=== PATIENT | female | born 1960 | race African-American/Black ===

== ENCOUNTER 2017-01-07 08:14 | Outpatient (CLI) | payer MEDICARE, MEDICAID ==
--- NOTE | 2017-01-07 11:02 | PRG ---
DATE OF SERVICE: 01/07/2017 HISTORY: Ms. Zandra Colindres is a very pleasant 56-year-old who presents [facility] for evaluation of decubitus ulceration inferior to the left buttock. The patient also has an ulceratio n of her right below the knee amputation stump. The patient has been receiving dressing changes of Arglaes powder for both wounds. The patient has no complaints today. She denies any fever or chill s. PHYSICAL EXAMINATION: VITAL SIGNS: Temperature 98.6, pulse 76, respirations 18, blood pressure 148/82, Accu-Chek 420. BACK: An ulceration of the left upper thigh is present which measures approximately 8.0 x 5.4 cm. The dimensions of the wound at the time of the patient's visit on 12/02/2016 were approximately 8.5 x 5.5 cm. The wound is granulating. Nonviable tissue present within the wound margins was debrided with an excisional full-thickness debridement. No purulent drainage is associated with the wound. A sample of granulation tissue within the wound margins was excised with the use of scissors and se nt for aerobic and anaerobic cultures. No erythema of the skin surrounding the wound is present. N o maceration of the skin of the periwound is noted. EXTREMITIES: An ulceration of the right below the knee amputation stump is present which measures a pproximately 1.1 x 0.9 cm. The dimensions of the wound at the time of the patient's visit on 2016 were approximately 1.4 x 0.6 cm. Granulation tissue is present within the wound margins. No p urulent drainage is associated with the wound. No erythema of the skin surrounding the wound is pre sent. No maceration of the skin of the periwound is noted. No significant edema of the right below the knee amputation stump is present on exam today. No bone is palpable within the margins of the right below the knee amputation stump wound. ASSESSMENT AND PLAN: 1. Decubitus ulceration of left upper thigh. The patient also has an ulceration of the right below the knee amputation stump. Dressing changes of Arglaes powder for both wounds will be continued on a daily basis after cleansing and irrigation. I will see Ms. Colindres again in four weeks. Orders w ill again be transmitted to [facility] for offloading of both wounds with p osition changes to 2 hours. Orders will also be transmitted to [facility] for dressing changes as needed in addition to the daily dressing changes should the dressings become soiled from urine or bowel movement. 2. Diabetes mellitus. The patient's Accu-Chek in clinic today is 420. The patient has been remind ed that for optimal wound healing, her blood glucoses should remain below 150. 3. Hypertension. 4. Coronary artery disease. 5. Peripheral vascular disease.
== END 2017-01-07 08:15 | disposition home or self-care (01) ==
LOC: WCC 08:14
PROVIDERS: ATTEND Family Medicine
DX: L89.899 Pressure ulcer of other site, unspecified stage (principal); T87.89 Other complications of amputation stump; E11.9 Type 2 diabetes mellitus without complications; I10 Essential (primary) hypertension; I73.9 Peripheral vascular disease, unspecified; I25.10 Atherosclerotic heart disease of native coronary artery without angina pectoris
CPT/HCPCS: 11042; 36416; 87070; 87077; 87186; 87205

== ENCOUNTER 2017-01-28 08:23 | Outpatient (CLI) | payer MEDICARE, MEDICAID ==
[2017-01-28] MEDS ORDERED: Sodium Chloride 0.9% 15 ML NEB ONE (08:28)
[2017-01-28] MEDS ORDERED: Lidocaine 2% Jelly 5 ML TUBE ONE (08:28)
--- NOTE | 2017-01-28 11:01 | PRG ---
DATE OF SERVICE: 01/28/2017 HISTORY: Ms. Zandra Colindres is a very pleasant 56-year-old who presents to the [facility] for evaluation of a decubitus ulceration of the inferior left buttock. The patient also has an ulceratio n of her right below the knee amputation stump. The patient has been receiving dressing changes of A rglaes powder for both wounds. Ms. Colindres has no complaints today. She denies any fever or chills. PHYSICAL EXAMINATION: VITAL SIGNS: Temperature 97.7, pulse 73, respirations 18, blood pressure 125/87. Accu-Chek 200. BACK: An ulceration of the left inferior buttock is present which measures approximately 4.5 x 5.5 c m. The dimensions of the wound at the time of the patient's visit on 01/07/2017 were approximately 8 .0 x 5.4 cm. No granulation tissue is visible within the wound margins. Necrotic and nonviable tiss ue present within the wound margins was debrided with an excisional full-thickness debridement with t he use of scissors. No purulent drainage is associated with the wound. No erythema of the skin surr ounding the wound is present. No maceration of the skin of the periwound is noted. EXTREMITIES: The ulceration of the right below the knee amputation stump has healed completely. ASSESSMENT AND PLAN: 1. Decubitus ulceration of inferior left buttock, dressing changes of Santyl and gauze will be initi ated today. These dressing changes are to be performed on a daily basis after cleansing and irrigati on. Arrangements will also be made for the initiation of negative pressure therapy with dressing silverio nges of the wound VAC 3 times per week at [facility]. Dressing changes of S antyl will be discontinued once the wound VAC becomes available. Orders will again be transmitted to [facility] for offloading of the wound with position changes q.2 hours. Or ders will again be transmitted to [facility] for dressing changes as needed in addition to the daily dressing changes should the dressings become soiled from urine or bowel move ment. I will see Ms. Colindres again in four weeks. 2. Diabetes mellitus. The patient's Accu-Chek in clinic today is 200. The patient has been reminde d that for optimal wound healing, her blood glucoses should remain below 150. 3. Hypertension. 4. Coronary artery disease. 5. Peripheral vascular disease.
== END 2017-01-28 08:24 | disposition home or self-care (01) ==
LOC: WCC 08:23
PROVIDERS: ATTEND Family Medicine
DX: L89.329 Pressure ulcer of left buttock, unspecified stage (principal); E11.9 Type 2 diabetes mellitus without complications; E78.5 Hyperlipidemia, unspecified; I25.10 Atherosclerotic heart disease of native coronary artery without angina pectoris; I73.9 Peripheral vascular disease, unspecified; I10 Essential (primary) hypertension
CPT/HCPCS: 11042; A4218

== ENCOUNTER 2018-06-20 18:20 | Inpatient (IN) | payer MEDICARE, OTHER ==
[2018-06-20 21:03] LABS: #Eosinphils 0.2 thou/uL (0.0-0.7); #Lymphocytes 2.8 thou/uL (1.20-3.40); #Monocytes 0.7 thou/uL (0.11-0.59); #Neutrophils 2.9 thou/uL (1.40-6.50); %Basophils 0.6 % (0.0-1.0); %Eosinophils 3.4 % (0.0-10.0); %Lymphocytes 41.6 % (21.0-51.0); %Monocytes 10.4 % (0.0-10.0); Hemoglobin 12.1 g/dL (12.0-16.0); Mean Corpuscular HGB CONC 31.1 g/dL (32.0-36.0); Mean Corpuscular Hemoglobin 30.2 pg (27.0-31.0); Mean Corpuscular Volume 97.1 fL (78.0-98.0); Mean Platelet Volume 8.5 fL (7.4-10.4); Platelet Count 233 thou/uL (130-400); RBC Distribution Width 13.5 % (11.5-14.5); Red Blood Cell (RBC) Count 4.01 mill/uL (4.20-5.40); White Blood Cell (WBC) Count 6.7 thou/uL (4.8-10.8)
[2018-06-20] MEDS ORDERED: Acetaminophen 500 MG TAB ONE (21:18)
[2018-06-20 21:24] LABS: ALT (SGPT) 31 U/L (8-55); AST (SGOT) 30 U/L (5-34); Albumin 3.7 g/dL (3.5-5.0); Alkaline Phosphatase 92 U/L (40-150); Anion Gap 13 mmol/L (10-20); BUN (Urea Nitrogen) 34 mg/dL (9.8-20.1); Bilirubin, Total 0.2 mg/dL (0.2-1.2); Calc. Creatinine Clearance 0 mL/min (70-130); Calcium 9.4 mg/dL (7.8-10.44); Carbon Dioxide 18 mmol/L (22-29); Chloride 109 mmol/L (98-107); Estimated GFR-MDRD 56; Globulin 3.2 g/dL (2.4-3.5); Glucose 454 mg/dL (70-105); Potassium 4.4 mmol/L (3.5-5.1); Protein, Total 6.9 g/dL (6.0-8.3); Sodium 136 mmol/L (136-145)
[2018-06-20] MEDS ORDERED: Piperacillin/Tazobactam 4.5 GM VIAL ONE (21:58)
[2018-06-20] MEDS ORDERED: Sodium Chloride 0.9% 100 ML ONE (21:58)
[2018-06-20] MEDS ORDERED: Vancomycin HCl 1.5 GM in Sodium Chloride 0.9% 250 ML 300 ML IVPB SCH (22:00)
--- NOTE | 2018-06-20 22:20 | PDOC.FPRHP ---
- History of Present Illness Chief Complaint: sacral ulcer History of Present Illness: 58 yo F presents form [facility], sent in because wound care nurses were concerned about patient's sacral decubitus ulcer. Pt reports she has had ulcer for past year. Denies current pain, but states it sometimes hurts. Denies fevers /headache. Denies CP/SOB/Nausea/vomiting/diarrhea/constipation. ED Course: Blood cultures, wound cultures. 30 ml/kg bolus NS, vanc and zosyn, tylenol - Allergies/Adverse Reactions Allergies Allergy/AdvReac Type Severity Reaction Status Date / Time No Known Allergies Allergy Verified 01/18/14 13:15 - Home Medications Medication Instructions Recorded Confirmed Type Cholecalciferol (Vitamin D3) 1 cap PO DAILY 01/18/14 06/21/18 History [Vitamin D3] Citalopram Hydrobromide 20 mg PO DAILY 01/18/14 06/21/18 History [Citalopram HBr] Clopidogrel Bisulfate [Clopidogrel] 75 mg PO DAILY 01/18/14 06/21/18 History Insulin Aspart [NovoLOG FlexPen] 0 unit SC ACHS 01/18/14 06/21/18 History Pantoprazole [Protonix] 40 mg PO DAILY 01/18/14 09/05/15 History Polyethylene Glycol 3350 [Glycolax] 17 gm PO DAILY PRN 01/19/14 06/21/18 History Lovastatin 20 mg PO QPM- 09/05/15 06/21/18 History Metoprolol Tartrate 25 mg PO BID 09/05/15 06/21/18 History Amlodipine Besylate [amLODIPine 5 mg PO DAILY #0 tablet 09/06/15 06/21/18 Rx Besylate] Magnesium Oxide 400 mg PO DAILY #7 tab 09/06/15 06/21/18 Rx Baclofen 10 mg PO TID 06/21/18 06/21/18 History Folic Acid 1 mg PO DAILY 06/21/18 06/21/18 History HumaLOG 30 unit SC TID- 06/21/18 06/21/18 History Insulin Detemir [Levemir] 140 unit SQ BID 06/21/18 06/21/18 History QUEtiapine Fumarate [Seroquel] 50 mg PO BID 06/21/18 06/21/18 History - History PMHx: DM2, GERD, HLD, HTN, CVA w/ left side weakness (upper and lower) PSHx: Rt urostomy, Rt BKA, Left AKA, CSx2 FHx: denies cancer history in family Social: denies alcohol or tobacco abuse, reports she used to use crack cocaine. Denies IV drug use. - Review of Systems General: denies: fever/chills, weight/appetite/sleep changes Eyes: denies: eye pain, vision changes ENT: denies: nasal congestion, rhinorrhea Respiratory: denies: cough, congestion, shortness of breath Cardiovascular: denies: chest pain, palpitation, edema, paroxysmal nocturnal dyspnea Gastrointestinal: denies: nausea, vomiting, diarrhea, constipation, abdominal pain Genitourinary: denies: dysuria, other (hematuria) Skin: reports: lesions (sacral ulcer). denies: rashes Musculoskeletal: denies: pain, tenderness Neurological: denies: numbness, weakness Psychological: denies: anxiety, depression - Vital signs BP: [106/83] HR: [89] RR: [17] Tmax: [98.2] Pox: [95]% on [RA] Wt: [81.65 kg] - Physical Exam Constitutional: NAD, well developed HEENT: normocephalic and atraumatic, PERRLA, EOMI, MMM, oropharynx clear Neck: supple, no LAD Heart: RRR, normal S1/S2, no murmurs/rubs/gallops Lungs: CTAB, no respiratory distress, good air movement, no wheezing Abdomen: soft, non-tender, bowel sounds present, no masses/distention, other ( obese) Musculoskeletal: other (BLE amputations) Skin: good turgor, capillary refill <2 seconds, other (sacral stage 2 decubitus ulcer) Heme/Lymphatic: no unusual bruising or bleeding, no purpura, no petechia Psychiatric: normal mood and affect, good judgment and insight FMR H&P: Results - Labs Result Diagrams: 06/20/18 20:49 06/21/18 03:29 Lab results: WBC 6.7 thou/uL (4.8-10.8) 06/20/18 20:49 Hgb 12.1 g/dL (12.0-16.0) 06/20/18 20:49 Hct 38.9 % (36.0-47.0) 06/20/18 20:49 MCV 97.1 fL (78.0-98.0) 06/20/18 20:49 Plt Count 233 thou/uL (130-400) 06/20/18 20:49 Neutrophils % 44.0 % (42.0-75.0) 06/20/18 20:49 Sodium 136 mmol/L (136-145) 06/20/18 20:55 Potassium 4.4 mmol/L (3.5-5.1) 06/20/18 20:55 Chloride 109 mmol/L (98-107) H 06/20/18 20:55 Carbon Dioxide 18 mmol/L (22-29) L 06/20/18 20:55 BUN 34 mg/dL (9.8-20.1) H 06/20/18 20:55 Creatinine 1.21 mg/dL (0.6-1.1) H 06/20/18 20:55 Glucose 454 mg/dL (70-105) H 06/20/18 20:55 Lactic Acid 3.8 mmol/L (0.5-2.2) H 06/20/18 20:49 Calcium 9.4 mg/dL (7.8-10.44) 06/20/18 20:55 Total Bilirubin 0.2 mg/dL (0.2-1.2) 06/20/18 20:55 AST 30 U/L (5-34) 06/20/18 20:55 ALT 31 U/L (8-55) 06/20/18 20:55 Alkaline Phosphatase 92 U/L (40-150) 06/20/18 20:55 Serum Total Protein 6.9 g/dL (6.0-8.3) 06/20/18 20:55 Albumin 3.7 g/dL (3.5-5.0) 06/20/18 20:55 FMR H&P: A/P - Problem List (1) Sacral decubitus ulcer Current Visit: Yes Status: Chronic Code(s): L89.159 - PRESSURE ULCER OF SACRAL REGION, UNSPECIFIED STAGE Qualifiers: Pressure injury stage: stage 2 Qualified Code(s): L89.152 - Pressure ulcer of sacral region, stage 2 (2) EMMANUEL (acute kidney injury) Current Visit: Yes Status: Acute Code(s): N17.9 - ACUTE KIDNEY FAILURE, UNSPECIFIED (3) GERD (gastroesophageal reflux disease) Current Visit: Yes Status: Chronic Code(s): K21.9 - GASTRO-ESOPHAGEAL REFLUX DISEASE WITHOUT ESOPHAGITIS (4) DM type 2 (diabetes mellitus, type 2) Current Visit: No Status: Chronic (5) HLD (hyperlipidemia) Current Visit: No Status: Chronic Code(s): E78.5 - HYPERLIPIDEMIA, UNSPECIFIED (6) HTN (hypertension) Current Visit: No Status: Chronic Code(s): I10 - ESSENTIAL (PRIMARY) HYPERTENSION (7) PVD (peripheral vascular disease) Current Visit: No Status: Chronic Code(s): I73.9 - PERIPHERAL VASCULAR DISEASE, UNSPECIFIED (8) History of CVA with residual deficit Current Visit: Yes Status: Chronic Code(s): I69.30 - UNSPECIFIED SEQUELAE OF CEREBRAL INFARCTION (9) Hyperglycemia Current Visit: Yes Status: Acute Code(s): R73.9 - HYPERGLYCEMIA, UNSPECIFIED (10) Lactic acidosis Current Visit: Yes Status: Acute Code(s): E87.2 - ACIDOSIS - Plan Sacral Decubitus Ulcer - Wound care consulted - Does not appear infected currently, WBC wnl, will not continue abx - procal pending - In ED: vanc/zosyn, 30 ml/kg bolus, tylenol Hyperglycemia - 400s - on levemir outpt (140 BID), on lantus 70 BID while inpt - NS @ 120 ml/hr - aggressive SSI Lactic Acidosis -3.8-> 2.8, continue to monitor EMMANUEL -IV fluids as above - monitor with AM BMP DM2 -hyperglycemia protocol - A1C pending HTN -continue home meds CVA w/ res left sided weakness - PT/OT consulted hx BLE amputations -PT/OT as above hx cocaine use - pt reports she quit 5 yrs ago, no IV drug use Diet: CC DVT ppx: lovenox GI ppx: protonix Dispo: admit to medical obs PCP: Christofer KATE H&P: Upper [facility] - Pertinent history 58 y/o F with PMHx of CAD, DM2, GERD, HLD, HTN, CVA, R BKA, L AKA [facility] due to sacral ulcer. The [facility] sent her here to check her sacral ulcer due to concern for worsening. This ulcer has been there for 1 year. She denies any recent change from baseline. She does have pain that comes and goes, but none at this time. She has been cared for by a wound care nurse. She denies any fevers, chills, prior h/o debridement. She reports recently she has had polydipsia worse from baseline. She has a urostomy in place with no problems from that. - Pertinent findings BP 159/94, HR 90, RR 16, Temp 99.2, O2 sat 95% on RA, Weight 81.65 kg PE: Gen - alert, oriented, NAD HEENT - MMM, EOMI CV - RRR, no murmurs, gallops Resp - CTAB, no wheezes Abd - protuberant, NTTP MSK - R BKA, L AKA, non-tender Derm - L gluteal decubitus ulcer with no erythema, edema, or purulence. Bilateral gluteal skin breakdown Labs - Lactic acid: 3.8 Glucose: 454 Creatinine: 1.21 GFR: 56 - Plan Date/Time: 06/20/180 I, Mariel Dai MD, PGY-2, have evaluated this patient and agree with findings/ plan as outlined by industrial design intern resident. Pertinent changes/additions are listed here. Chronic Gluteal Decubitus Ulcer Patient reports no change from baseline, but NH apparently worried about change from baseline. Patient was treated as septic by the ED due to elevation in lactic acid, however no signs of infection of the ulcer. s/p 30mL/kg NS bolus, vanc, and zosyn. -Will contact NH to determine baseline -Consult Wound Care/PT/OT -Will check procalcitonin to determine if need for continuing abx, will stop abx at this time. Lactic Acid Elevation Lactic acid 3.8, no signs of infection, consider alternative source. s/p 30mL/ kg bolus. -Will repeat Hyperglycemia Glucose initially in 400's. Pt reports it is normally in 200's and that she takes a "pill" and insulin for it. There was no oral medication seen in her NH records for diabetes -A1c -On 140U levemir BID and 30U lispro with meals, will start lantus 70U BID -Aggressive SSI CAD -Continue plavix and metoprolol DM2 -Plan as above HLD -Continue statin HTN Continue home metoprolol, amlodipine PVD s/p R BKA and L AKA -PT/OT consult Code Status: DNR VTE ppx: Lovenox Addendum - Attending - Attending Attestation Date/Time: 06/21/18 0642 I personally evaluated the patient and discussed the management with Dr. Rosado at time of admission on 06/20/2018. I agree with the History, Examination, Assessment and Plan documented above with any addition or exceptions noted below.
[2018-06-21 00:52] LABS: Lactic Acid 2.8 mmol/L (0.5-2.2)
[2018-06-21] MEDS ORDERED: Dextrose 5% in Water 1,000 ML IV PRN (01:16)
[2018-06-21] MEDS ORDERED: Dextrose 50% Abboject 50 ML SYRINGE SLOW IVP PRN (01:16)
[2018-06-21] MEDS ORDERED: INSULIN GLARGINE SC SCH (01:30)
[2018-06-21] MEDS ORDERED: PRE FILLED SC SCH (01:30)
[2018-06-21] MEDS ORDERED: Insulin Glargine 70 UNITS in Pre-Filled Syringe 1 EACH SC SCH (01:45)
[2018-06-21] MEDS ORDERED: Polyethylene Glycol 3350 17 GM Packet PO PRN (01:58)
[2018-06-21] MEDS: Lactated Ringer's 1,000 ML IV SCH ×3 (02:32→20:05)
[2018-06-21 03:58] LABS: Anion Gap 12 mmol/L (10-20); BUN (Urea Nitrogen) 30 mg/dL (9.8-20.1); Calc. Creatinine Clearance 0 mL/min (70-130); Calcium 8.7 mg/dL (7.8-10.44); Carbon Dioxide 17 mmol/L (22-29); Chloride 114 mmol/L (98-107); Estimated GFR-MDRD 66; Glucose 365 mg/dL (70-105); Sodium 139 mmol/L (136-145)
[2018-06-21 03:59] LABS: Lactic Acid 3.1 mmol/L (0.5-2.2)
--- NOTE | 2018-06-21 05:53 | PDOC.FM ---
- Subjective Subjective: Zandra Colindres seen at bedside this morning. She has no complaints and states that she is at her baseline in regards to her general health. States that she was [facility] because there was concern that her sacral decubitus ulcer is worsening/possibly infected. She denies any fever, chills, night sweats, chest pain, dyspnea, n/v. Wound care has been consulted to evaluate the wound. - Objective MAR Reviewed: Yes Result Diagrams: 06/20/18 20:49 06/21/18 03:29 Phys Exam - Physical Examination Constitutional: NAD HEENT: moist MMs, sclera anicteric Neck: supple, full ROM Respiratory: no wheezing, no rales, no rhonchi, clear to auscultation bilateral Cardiovascular: RRR, no significant murmur Gastrointestinal: soft, non-tender, no distention Musculoskeletal: no edema b/l LE amputations Neurological: non-focal, normal sensation Psychiatric: normal affect, A&O x 3 Deviation from normal: stage 2 decubitus ulcer, no drainage or surrounding erythema Dx/Plan (1) Sacral decubitus ulcer Code(s): L89.159 - PRESSURE ULCER OF SACRAL REGION, UNSPECIFIED STAGE Status: Chronic Qualifiers: Pressure injury stage: stage 2 Qualified Code(s): L89.152 - Pressure ulcer of sacral region, stage 2 (2) Lactic acidosis Code(s): E87.2 - ACIDOSIS Status: Acute (3) Metabolic acidosis Code(s): E87.2 - ACIDOSIS Status: Acute (4) EMMANUEL (acute kidney injury) Code(s): N17.9 - ACUTE KIDNEY FAILURE, UNSPECIFIED Status: Acute (5) Hyperglycemia Code(s): R73.9 - HYPERGLYCEMIA, UNSPECIFIED Status: Acute (6) GERD (gastroesophageal reflux disease) Code(s): K21.9 - GASTRO-ESOPHAGEAL REFLUX DISEASE WITHOUT ESOPHAGITIS Status: Chronic (7) History of CVA with residual deficit Code(s): I69.30 - UNSPECIFIED SEQUELAE OF CEREBRAL INFARCTION Status: Chronic (8) DM type 2 (diabetes mellitus, type 2) Status: Chronic (9) HLD (hyperlipidemia) Code(s): E78.5 - HYPERLIPIDEMIA, UNSPECIFIED Status: Chronic (10) HTN (hypertension) Code(s): I10 - ESSENTIAL (PRIMARY) HYPERTENSION Status: Chronic - Plan Plan: Chronic Gluteal Decubitus Ulcer - NH concerned for infected ulcer. s/p 30mL/kg NS bolus, vanc, and zosyn in ER - Will contact NH to determine baseline - Wound Care/PT/OT consulted for evaluation and treatment recs - Procal is negative, Lactic acid initially trended down but now up to 3.1 Lactic Acid Elevation Lactic acid 3.8, no signs of infection, consider alternative source. s/p 30mL/ kg bolus. - down to 2.8, but trended up to 3.1 this morning Hyperglycemia - A1c pending - On 140U levemir BID and 30U lispro with meals, will start lantus 70U BID - Aggressive SSI CAD - Continue plavix and metoprolol DM2 - Plan as above HLD - Continue statin HTN - Continue home metoprolol, amlodipine PVD s/p R BKA and L AKA - PT/OT consult Code Status: DNR VTE ppx: Lovenox Addendum - Attending - Attending Attestation Date/Time: 06/21/18 3078 I personally evaluated the patient and discussed the management with Dr. Roque. I agree with and repeated the History, Examination, Assessment and Plan documented above with any addition or exceptions noted below. Continue antibiotics, control sugars, await wound care.
[2018-06-21] MEDS ORDERED: Metoprolol Tartrate 25 MG TAB ONE (09:20)
[2018-06-21] MEDS ORDERED: Clopidogrel Bisulfate 75 MG TAB ONE (09:20)
[2018-06-21] MEDS ORDERED: Folic Acid 1 MG TAB ONE (09:20)
[2018-06-21] MEDS: Amlodipine 5 MG TAB PO SCH (09:29)
[2018-06-21] MEDS: Folic Acid 1 MG TAB PO SCH (09:30)
[2018-06-21] MEDS: Metoprolol Tartrate 25 MG TAB PO SCH ×2 (09:30→20:06)
[2018-06-21] MEDS: Citalopram 20 MG TAB PO SCH (09:30)
[2018-06-21] MEDS: Baclofen 10 MG TAB PO SCH ×3 (09:30→20:06)
[2018-06-21] MEDS: Clopidogrel Bisulfate 75 MG TAB PO SCH (09:30)
[2018-06-21] MEDS: Magnesium Oxide 400 MG TAB PO SCH (09:30)
[2018-06-21] MEDS ORDERED: Enoxaparin Sodium 40 MG/0.4 ML SYRINGE ONE (09:39)
[2018-06-21] MEDS: Enoxaparin Sodium 40 MG/0.4 ML SYRINGE SC SCH (09:41)
[2018-06-21] MEDS: Insulin Glargine 70 UNITS in Pre-Filled Syringe 1 EACH SC SCH ×2 (10:17→21:33)
[2018-06-21] MEDS ORDERED: HumaLOG 300 UNITS/3 ML VIAL ONE (11:38)
[2018-06-21] MEDS: HumaLOG 300 UNITS/3 ML VIAL SC PRN ×3 (11:53→20:17)
[2018-06-21] MEDS ORDERED: cefTRIAXone Sodium 2 MG in Syringe 0 ML IVPB SCH (16:15)
[2018-06-21] MEDS ORDERED: cefTRIAXone\\ROCEPHIN 2 GM in Sodium Chloride 0.9% 100 ML IVPB SCH (17:00)
[2018-06-21] MEDS: Lovastatin 20 MG TAB PO SCH (19:55)
[2018-06-21] MEDS: cefTRIAXone\\ROCEPHIN 2 GM in Sodium Chloride 0.9% 100 ML IVPB SCH (20:11)
[2018-06-21] MEDS: Acetaminophen 325 MG TAB PO PRN (20:59)
[2018-06-22] MEDS: Lactated Ringer's 1,000 ML IV SCH ×3 (05:15→20:43)
[2018-06-22] MEDS: HumaLOG 300 UNITS/3 ML VIAL SC PRN ×3 (06:26→20:44)
--- NOTE | 2018-06-22 07:16 | PDOC.FM ---
- Subjective Subjective: Zandra Colindres seen at bedside this morning. She is doing well, she denies any complaints. Denies fever, chills, headaches, vision changes, chest pain, dyspnea, abdominal pain/n/v. She had no acute events overnight. Blood culture grew gram neg rods and wound culture crew GBS. Sensitivities pending. - Objective MAR Reviewed: Yes Vital Signs & Weight: Vital Signs (12 hours) Temp Pulse Resp BP Pulse Ox 06/22/18 07:06 98.6 F 85 19 151/83 H 92 L Weight Weight 88.451 kg I&O: 06/21/18 06/22/18 06/23/18 06:59 06:59 06:59 Intake Total 1750 Output Total 1050 Balance 700 Result Diagrams: 06/20/18 20:49 06/21/18 03:29 Phys Exam - Physical Examination Constitutional: NAD HEENT: moist MMs, sclera anicteric Neck: no JVD, supple, full ROM Respiratory: no wheezing, no rales, no rhonchi, clear to auscultation bilateral Cardiovascular: RRR, no significant murmur Gastrointestinal: soft, non-tender, no distention Musculoskeletal: no edema, pulses present Neurological: non-focal, normal sensation, moves all 4 limbs bilateral AKAs Psychiatric: normal affect, A&O x 3 Skin: no rash Dx/Plan (1) Sacral decubitus ulcer Code(s): L89.159 - PRESSURE ULCER OF SACRAL REGION, UNSPECIFIED STAGE Status: Chronic Qualifiers: Pressure injury stage: stage 2 Qualified Code(s): L89.152 - Pressure ulcer of sacral region, stage 2 (2) Lactic acidosis Code(s): E87.2 - ACIDOSIS Status: Acute (3) Metabolic acidosis Code(s): E87.2 - ACIDOSIS Status: Acute (4) EMMANUEL (acute kidney injury) Code(s): N17.9 - ACUTE KIDNEY FAILURE, UNSPECIFIED Status: Acute (5) Hyperglycemia Code(s): R73.9 - HYPERGLYCEMIA, UNSPECIFIED Status: Acute (6) GERD (gastroesophageal reflux disease) Code(s): K21.9 - GASTRO-ESOPHAGEAL REFLUX DISEASE WITHOUT ESOPHAGITIS Status: Chronic (7) History of CVA with residual deficit Code(s): I69.30 - UNSPECIFIED SEQUELAE OF CEREBRAL INFARCTION Status: Chronic (8) DM type 2 (diabetes mellitus, type 2) Status: Chronic (9) HLD (hyperlipidemia) Code(s): E78.5 - HYPERLIPIDEMIA, UNSPECIFIED Status: Chronic (10) HTN (hypertension) Code(s): I10 - ESSENTIAL (PRIMARY) HYPERTENSION Status: Chronic - Plan Plan: E coli bacteremia - 1 of 2 blood cultures positive for E. coli - treating with rocephin - senstivities pending - no systemic symptoms or lab findings concerning for sepsis Chronic Gluteal Decubitus Ulcer - NH concerned for infected ulcer. s/p 30mL/kg NS bolus, vanc, and zosyn in ER - Will contact [place] to determine baseline - Wound Care/PT/OT consulted for evaluation and treatment recs - Procal is negative, Lactic acid initially trended down but now up to 3.1 - Wound culture has grown GBS - Ceftriaxone, sensitivities pending Lactic Acid Elevation Lactic acid 3.8, no signs of infection, consider alternative source. s/p 30mL/ kg bolus. - down to 2.8, but trended up to 3.1 this morning Hyperglycemia - A1c pending - On 140U levemir BID and 30U lispro with meals, will start lantus 70U BID - increasing to Lantus 80 U BID, she required an additional 29 U SSI over last 24 hours - Aggressive SSI CAD - Continue plavix and metoprolol DM2 - Plan as above HLD - Continue statin HTN - Continue home metoprolol, amlodipine PVD s/p R BKA and L AKA - PT/OT consult
[2018-06-22] MEDS: Folic Acid 1 MG TAB PO SCH (09:37)
[2018-06-22] MEDS: Citalopram 20 MG TAB PO SCH (09:37)
[2018-06-22] MEDS: Magnesium Oxide 400 MG TAB PO SCH (09:37)
[2018-06-22] MEDS: Amlodipine 5 MG TAB PO SCH (09:37)
[2018-06-22] MEDS: Metoprolol Tartrate 25 MG TAB PO SCH ×2 (09:37→20:43)
[2018-06-22] MEDS: Baclofen 10 MG TAB PO SCH ×3 (09:37→20:43)
[2018-06-22] MEDS: Enoxaparin Sodium 40 MG/0.4 ML SYRINGE SC SCH (09:38)
[2018-06-22] MEDS: Insulin Glargine 70 UNITS in Pre-Filled Syringe 1 EACH SC SCH (09:38)
[2018-06-22] MEDS: Clopidogrel Bisulfate 75 MG TAB PO SCH (09:38)
[2018-06-22] MEDS ORDERED: Insulin Glargine 80 UNITS in Pre-Filled Syringe 1 EACH SC SCH ×2 (10:50→11:15)
--- NOTE | 2018-06-22 11:06 | PRG ---
DATE OF SERVICE: 06/22/2018 SUBJECTIVE: Ms. Colindres is an obese 58-year-old lady, who is admitted sensibly with a possible decubitus ulcer infection. However, an inspection of the wound does not really show any evidence of infection. In reviewing her labs, her white count is normal at 6700. Her hemoglobin was 12.1. Her hematocrit is 38.9. However, on admission, her glucose was 454 with a bicarb borderline low at 18. She also had an elevated lactic acid of 3.8. I believe the likely acid elevation may be more related to a very early DKA as opposed to sepsis. In the event, we should get better control of her blood glucose levels, which are still in excess of 300. I would suggest a high dose of Lantus along with pre meal Humalog. In the event, she does not clinically appear to be septic and she does not clinically appear to have a wound infection. Job ID: [id number]
[2018-06-22 11:21] LABS: #Eosinphils 0.3 thou/uL (0.0-0.7); #Lymphocytes 2.1 thou/uL (1.20-3.40); #Monocytes 0.7 thou/uL (0.11-0.59); #Neutrophils 3.3 thou/uL (1.40-6.50); %Basophils 0.1 % (0.0-1.0); %Lymphocytes 33.4 % (21.0-51.0); %Monocytes 10.2 % (0.0-10.0); %Neutrophils 52.3 % (42.0-75.0); Hemoglobin 11.4 g/dL (12.0-16.0); Mean Corpuscular HGB CONC 32.3 g/dL (32.0-36.0); Mean Corpuscular Hemoglobin 30.8 pg (27.0-31.0); Mean Corpuscular Volume 95.4 fL (78.0-98.0); Platelet Count 211 thou/uL (130-400); RBC Distribution Width 13.5 % (11.5-14.5); Red Blood Cell (RBC) Count 3.71 mill/uL (4.20-5.40); White Blood Cell (WBC) Count 6.3 thou/uL (4.8-10.8)
[2018-06-22 11:49] LABS: Lactic Acid 3.2 mmol/L (0.5-2.2)
[2018-06-22 11:52] LABS: ALT (SGPT) 22 U/L (8-55); AST (SGOT) 26 U/L (5-34); Albumin 3.2 g/dL (3.5-5.0); Alkaline Phosphatase 76 U/L (40-150); Anion Gap 13 mmol/L (10-20); BUN (Urea Nitrogen) 20 mg/dL (9.8-20.1); Bilirubin, Total 0.3 mg/dL (0.2-1.2); Calc. Creatinine Clearance 99 mL/min (70-130); Calcium 9.2 mg/dL (7.8-10.44); Carbon Dioxide 18 mmol/L (22-29); Chloride 112 mmol/L (98-107); Estimated GFR-MDRD 79; Globulin 3.2 g/dL (2.4-3.5); Glucose 229 mg/dL (70-105); Potassium 3.7 mmol/L (3.5-5.1); Protein, Total 6.4 g/dL (6.0-8.3)
[2018-06-22 12:18] LABS: Sodium 139 mmol/L (136-145)
[2018-06-22 14:32] VITALS: BMI 32.4
[2018-06-22] MEDS: Lovastatin 20 MG TAB PO SCH (15:56)
[2018-06-22] MEDS: cefTRIAXone\\ROCEPHIN 2 GM in Sodium Chloride 0.9% 100 ML IVPB SCH (20:43)
[2018-06-22] MEDS: Insulin Glargine 80 UNITS in Pre-Filled Syringe 1 EACH SC SCH (20:44)
[2018-06-22] MEDS: Acetaminophen 325 MG TAB PO PRN (20:54)
[2018-06-23] MEDS: Lactated Ringer's 1,000 ML IV SCH ×3 (05:50→20:48)
[2018-06-23] MEDS: HumaLOG 300 UNITS/3 ML VIAL SC PRN ×4 (05:50→20:47)
--- NOTE | 2018-06-23 07:04 | PDOC.FM ---
- Subjective Subjective: Zandra Colindres seen at bedside. She is doing well, has no complaints this morning and there were no acute events overnight. Her cultures grew GBS in wound and E coli in blood (1 of 2 cultures). Spoke to Dr. Soria this morning who recommended getting UA and culture as well as CT abd/pelv to r/o alternative sources of potential bacteremia. Vitals remain stable and wnl. Patient denies pain, fever, chills, chest pain, dyspnea, n/v. - Objective MAR Reviewed: Yes Vital Signs & Weight: Vital Signs (12 hours) Temp Pulse Resp BP Pulse Ox 06/23/18 04:00 97.8 F 79 20 124/80 93 L 06/22/18 19:50 98.2 F 95 20 124/77 93 L Weight Admit Weight 88.451 kg Weight 88.451 kg I&O: 06/22/18 06/23/18 06/24/18 06:59 06:59 06:59 Intake Total 1750 4530 Output Total 1050 4000 Balance 700 530 Result Diagrams: 06/23/18 09:08 06/23/18 09:08 Phys Exam - Physical Examination Constitutional: NAD HEENT: moist MMs, sclera anicteric Neck: supple, full ROM Respiratory: no wheezing, no rales, no rhonchi, clear to auscultation bilateral Cardiovascular: RRR, no significant murmur Gastrointestinal: soft, non-tender, no distention Musculoskeletal: no edema, pulses present Neurological: non-focal, normal sensation, moves all 4 limbs b/l LE amputations Psychiatric: normal affect, A&O x 3 Deviation from normal: stage 2 sacral decubitus ulcer, no surrounding erythema or drainage Dx/Plan (1) Sacral decubitus ulcer Code(s): L89.159 - PRESSURE ULCER OF SACRAL REGION, UNSPECIFIED STAGE Status: Chronic Qualifiers: Pressure injury stage: stage 2 Qualified Code(s): L89.152 - Pressure ulcer of sacral region, stage 2 (2) Lactic acidosis Code(s): E87.2 - ACIDOSIS Status: Acute (3) Metabolic acidosis Code(s): E87.2 - ACIDOSIS Status: Acute (4) EMMANUEL (acute kidney injury) Code(s): N17.9 - ACUTE KIDNEY FAILURE, UNSPECIFIED Status: Acute (5) Hyperglycemia Code(s): R73.9 - HYPERGLYCEMIA, UNSPECIFIED Status: Acute (6) GERD (gastroesophageal reflux disease) Code(s): K21.9 - GASTRO-ESOPHAGEAL REFLUX DISEASE WITHOUT ESOPHAGITIS Status: Chronic (7) History of CVA with residual deficit Code(s): I69.30 - UNSPECIFIED SEQUELAE OF CEREBRAL INFARCTION Status: Chronic (8) DM type 2 (diabetes mellitus, type 2) Status: Chronic (9) HLD (hyperlipidemia) Code(s): E78.5 - HYPERLIPIDEMIA, UNSPECIFIED Status: Chronic (10) HTN (hypertension) Code(s): I10 - ESSENTIAL (PRIMARY) HYPERTENSION Status: Chronic - Plan Plan: E coli bacteremia - 1 of 2 blood cultures positive for E. coli - treating with rocephin - culture sensitive to rocephin - no systemic symptoms or lab findings concerning for sepsis, VSS - checking for alternative sources of infection with UA and culture and CT abd/ pelv Chronic Gluteal Decubitus Ulcer - [place] concerned for infected ulcer. s/p 30mL/kg NS bolus, vanc, and zosyn in ER - Wound Care/PT/OT consulted for evaluation and treatment recs - Procal is negative, Lactic acid initially trended down but now up to 3.2 - Wound culture has grown GBS - Ceftriaxone, sensitivities pending Lactic Acid Elevation Lactic acid 3.8, no signs of infection, consider alternative source. s/p 30mL/ kg bolus. - down to 2.8, but trended up Hyperglycemia - A1c pending - On 140U levemir BID and 30U lispro with meals, will start lantus 70U BID - increasing to Lantus 80 U BID - Aggressive SSI CAD - Continue plavix and metoprolol DM2 - Plan as above HLD - Continue statin HTN - Continue home metoprolol, amlodipine PVD s/p R BKA and L AKA - PT/OT consult Addendum - Attending - Attending Attestation Date/Time: 06/23/18 8434 I personally evaluated the patient and discussed the management with Dr. Roque. I agree with the History, Examination, Assessment and Plan documented above with any addition or exceptions noted below.
[2018-06-23] MEDS: Citalopram 20 MG TAB PO SCH (09:23)
[2018-06-23] MEDS: Metoprolol Tartrate 25 MG TAB PO SCH ×2 (09:23→20:45)
[2018-06-23] MEDS: Baclofen 10 MG TAB PO SCH ×3 (09:23→20:45)
[2018-06-23] MEDS: Amlodipine 5 MG TAB PO SCH (09:24)
[2018-06-23] MEDS: Magnesium Oxide 400 MG TAB PO SCH (09:24)
[2018-06-23] MEDS: Enoxaparin Sodium 40 MG/0.4 ML SYRINGE SC SCH (09:24)
[2018-06-23] MEDS: Folic Acid 1 MG TAB PO SCH (09:24)
[2018-06-23] MEDS: Clopidogrel Bisulfate 75 MG TAB PO SCH (09:24)
[2018-06-23 09:50] LABS: #Eosinphils 0.2 thou/uL (0.0-0.7); #Lymphocytes 1.8 thou/uL (1.20-3.40); #Monocytes 0.7 thou/uL (0.11-0.59); %Basophils 0.2 % (0.0-1.0); %Eosinophils 3.5 % (0.0-10.0); %Lymphocytes 31.9 % (21.0-51.0); %Monocytes 11.8 % (0.0-10.0); %Neutrophils 52.6 % (42.0-75.0); Hemoglobin 11.4 g/dL (12.0-16.0); Mean Corpuscular HGB CONC 31.3 g/dL (32.0-36.0); Mean Corpuscular Hemoglobin 29.8 pg (27.0-31.0); Mean Corpuscular Volume 95.4 fL (78.0-98.0); Mean Platelet Volume 8.8 fL (7.4-10.4); Platelet Count 212 thou/uL (130-400); RBC Distribution Width 13.5 % (11.5-14.5); Red Blood Cell (RBC) Count 3.82 mill/uL (4.20-5.40); White Blood Cell (WBC) Count 5.7 thou/uL (4.8-10.8)
[2018-06-23] MEDS: Insulin Glargine 80 UNITS in Pre-Filled Syringe 1 EACH SC SCH ×2 (10:03→20:47)
[2018-06-23 10:05] LABS: Lactic Acid 3.2 mmol/L (0.5-2.2)
[2018-06-23 10:09] LABS: ALT (SGPT) 23 U/L (8-55); AST (SGOT) 22 U/L (5-34); Albumin 3.2 g/dL (3.5-5.0); Alkaline Phosphatase 71 U/L (40-150); Anion Gap 14 mmol/L (10-20); BUN (Urea Nitrogen) 20 mg/dL (9.8-20.1); Bilirubin, Total 0.2 mg/dL (0.2-1.2); Calc. Creatinine Clearance 103 mL/min (70-130); Carbon Dioxide 16 mmol/L (22-29); Chloride 113 mmol/L (98-107); Estimated GFR-MDRD 84; Globulin 3.4 g/dL (2.4-3.5); Glucose 242 mg/dL (70-105); Potassium 3.8 mmol/L (3.5-5.1); Protein, Total 6.6 g/dL (6.0-8.3); Sodium 139 mmol/L (136-145)
[2018-06-23 12:34] LABS: Bilirubin Negative (Negative); Blood, Urine Small (Negative); Clarity CLOUDY (Clear); Glucose, Urine (Dipstick) Negative (Negative); Leukocyte Moderate (Negative); Nitrite Negative (Negative); Protein, Urine (Dipstick) Negative (Neg-Trace); Specific Gravity, Urine 1.008 (1.002-1.036); Urobilinogen 0.2 mg/dL (0.2-1.0); pH, Urine 7.5 (5.0-9.0)
[2018-06-23 13:04] LABS: Bacteria/HPF Rare-Few HPF (None Seen); Hyaline Casts/LPF 0-3 HYALINE CAST LPF (0-3 Hyaline); Renal Epithelial None Seen HPF (0-3); Transitional Epithelial NONE SEEN HPF (0-3)
[2018-06-23] MEDS ORDERED: ISOVUE-370 76%-LOCM 1 ML ONE (13:58)
--- NOTE | 2018-06-23 14:28 | CT ---
Contrast-enhanced images abdomen pelvis history is a 58 show presents History: Escherichia coli bacteremia wounded in buttocks. Contrast-enhanced CT images of the abdomen and pelvis is obtained after administration of IV and oral contrast. The lung bases are unremarkable. There is a large right anterolateral abdominal wall hernial defect with intraperitoneal spill of fat and small bowel herniating through the defect. 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 The small bowel and colon are well-opacified. There is some herniation of anterior abdominal wall tra nsverse colon through the a second anterior abdominal wall defect. No evidence of small bowel or colonic distention or obstruction seen. The liver and spleen are unremarkable. The gallbladder and pancreas are unremarkable. The kidneys dem onstrate no definite evidence of hydronephrosis or masses. There is abnormal thickening of the rectum. A rectal malignancy cannot be excluded. Correlate with direct visualization. There is a an area of skin and soft tissue breakdown posterior to the left issue with granulation tis breezy extending to the skin surface posterior and inferior to the left hip joint. 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 2: Thickening of the rectum 4: Left ischio decubitus ulcer.
[2018-06-23] MEDS: Lovastatin 20 MG TAB PO SCH (17:16)
[2018-06-23] MEDS: cefTRIAXone\\ROCEPHIN 2 GM in Sodium Chloride 0.9% 100 ML IVPB SCH (20:43)
[2018-06-24] MEDS: HumaLOG 300 UNITS/3 ML VIAL SC PRN ×3 (06:09→17:19)
[2018-06-24] MEDS: Lactated Ringer's 1,000 ML IV SCH (06:09)
--- NOTE | 2018-06-24 07:00 | PDOC.FM ---
- Subjective Subjective: Zandra Colindres seen at bedside this morning. She continues to deny any complaints and there were no acute events overnight. Repeat blood and urine cultures were drawn yesterday and CT abd/pelv was done that did no show any alternative sources of infection. She denies fever, chills, chest pain, dyspnea , n/v, pain.; - Objective MAR Reviewed: Yes Vital Signs & Weight: Vital Signs (12 hours) Temp Pulse Resp BP Pulse Ox 06/24/18 04:00 98.5 F 74 19 139/81 94 L 06/23/18 20:45 98.2 F 87 16 139/69 94 L Weight Admit Weight 88.451 kg Weight 88.451 kg I&O: 06/22/18 06/23/18 06/24/18 06:59 06:59 06:59 Intake Total 1750 4530 4720 Output Total 1050 4000 6100 Balance 700 530 -1380 Result Diagrams: 06/23/18 09:08 06/23/18 09:08 Phys Exam - Physical Examination Constitutional: NAD HEENT: moist MMs, sclera anicteric Neck: supple, full ROM Respiratory: no wheezing, no rales, no rhonchi, clear to auscultation bilateral Cardiovascular: RRR, no significant murmur Gastrointestinal: soft, non-tender, no distention Urostomy Musculoskeletal: no edema, pulses present Neurological: non-focal, normal sensation b/l LE amputation Psychiatric: normal affect, A&O x 3 Skin: no rash Dx/Plan (1) Sacral decubitus ulcer Code(s): L89.159 - PRESSURE ULCER OF SACRAL REGION, UNSPECIFIED STAGE Status: Chronic Qualifiers: Pressure injury stage: stage 2 Qualified Code(s): L89.152 - Pressure ulcer of sacral region, stage 2 (2) Lactic acidosis Code(s): E87.2 - ACIDOSIS Status: Acute (3) Metabolic acidosis Code(s): E87.2 - ACIDOSIS Status: Acute (4) EMMANUEL (acute kidney injury) Code(s): N17.9 - ACUTE KIDNEY FAILURE, UNSPECIFIED Status: Acute (5) Hyperglycemia Code(s): R73.9 - HYPERGLYCEMIA, UNSPECIFIED Status: Acute (6) GERD (gastroesophageal reflux disease) Code(s): K21.9 - GASTRO-ESOPHAGEAL REFLUX DISEASE WITHOUT ESOPHAGITIS Status: Chronic (7) History of CVA with residual deficit Code(s): I69.30 - UNSPECIFIED SEQUELAE OF CEREBRAL INFARCTION Status: Chronic (8) DM type 2 (diabetes mellitus, type 2) Status: Chronic (9) HLD (hyperlipidemia) Code(s): E78.5 - HYPERLIPIDEMIA, UNSPECIFIED Status: Chronic (10) HTN (hypertension) Code(s): I10 - ESSENTIAL (PRIMARY) HYPERTENSION Status: Chronic - Plan Plan: E coli bacteremia - 1 of 2 blood cultures positive for E. coli - treating with rocephin - culture sensitive to rocephin - no systemic symptoms or lab findings concerning for sepsis, VSS - CT abd pelv showed no obvious alternative source of infection - Urine cx pending Chronic Gluteal Decubitus Ulcer - NH concerned for infected ulcer. s/p 30mL/kg NS bolus, vanc, and zosyn in ER - Wound Care/PT/OT consulted for evaluation and treatment recs - Procal is negative, Lactic acid initially trended down but now up to 3.2 - Wound culture has grown GBS - Ceftriaxone, sensitivities pending Lactic Acid Elevation Lactic acid 3.8, no signs of infection, consider alternative source. s/p 30mL/ kg bolus. Hyperglycemia - A1c pending - On 140U levemir BID and 30U lispro with meals, will start lantus 70U BID - increasing to Lantus 80 U BID - Aggressive SSI CAD - Continue plavix and metoprolol DM2 - Plan as above HLD - Continue statin HTN - Continue home metoprolol, amlodipine PVD s/p R BKA and L AKA - PT/OT consult Addendum - Attending - Attending Attestation Date/Time: 06/24/18 0759 I personally evaluated the patient and discussed the management with Dr. Roque. I agree with and repeated the History, Examination, Assessment and Plan documented above with any addition or exceptions noted below. Urine suspicious and unfortunately not drawn in ED. Decub extensively explored by WC and not to bone with no evidence of infection. Will d/w Dr. Soria.
[2018-06-24] MEDS: Magnesium Oxide 400 MG TAB PO SCH (09:13)
[2018-06-24] MEDS: Folic Acid 1 MG TAB PO SCH (09:13)
[2018-06-24] MEDS: Baclofen 10 MG TAB PO SCH ×3 (09:13→20:27)
[2018-06-24] MEDS: Citalopram 20 MG TAB PO SCH (09:13)
[2018-06-24] MEDS: Enoxaparin Sodium 40 MG/0.4 ML SYRINGE SC SCH (09:14)
[2018-06-24] MEDS: Metoprolol Tartrate 25 MG TAB PO SCH ×2 (09:14→20:28)
[2018-06-24] MEDS: Amlodipine 5 MG TAB PO SCH (09:14)
[2018-06-24] MEDS: Clopidogrel Bisulfate 75 MG TAB PO SCH (09:14)
[2018-06-24] MEDS: Insulin Glargine 85 UNITS in Pre-Filled Syringe 1 EACH SC SCH ×2 (09:14→20:28)
[2018-06-24] MEDS: Lovastatin 20 MG TAB PO SCH (16:42)
[2018-06-24] MEDS: cefTRIAXone\\ROCEPHIN 2 GM in Sodium Chloride 0.9% 100 ML IVPB SCH (20:28)
--- NOTE | 2018-06-25 06:55 | PDOC.FM ---
- Subjective Subjective: Ms. Colindres was sitting up in bed this morning. Has no complaints. Says she feels comfortable returning to a snf. - Objective Vital Signs & Weight: Vital Signs (12 hours) Temp Pulse Resp BP Pulse Ox 06/24/18 20:15 98.2 F 84 16 135/75 95 06/24/18 19:15 95 Weight Admit Weight 88.451 kg Weight 88.451 kg I&O: 06/23/18 06/24/18 06/25/18 06:59 06:59 06:59 Intake Total 4530 4720 720 Output Total 4000 6100 1375 Balance 135 -3500 -141 Result Diagrams: 06/23/18 09:08 06/23/18 09:08 Phys Exam - Physical Examination Constitutional: NAD Respiratory: clear to auscultation bilateral Cardiovascular: RRR, no significant murmur Gastrointestinal: soft, non-tender, positive bowel sounds BLE amputations Skin: normal turgor Dx/Plan (1) E coli bacteremia Code(s): R78.81 - BACTEREMIA Status: Acute (2) Hyperglycemia Code(s): R73.9 - HYPERGLYCEMIA, UNSPECIFIED Status: Acute (3) Lactic acidosis Code(s): E87.2 - ACIDOSIS Status: Acute (4) GERD (gastroesophageal reflux disease) Code(s): K21.9 - GASTRO-ESOPHAGEAL REFLUX DISEASE WITHOUT ESOPHAGITIS Status: Chronic (5) History of CVA with residual deficit Code(s): I69.30 - UNSPECIFIED SEQUELAE OF CEREBRAL INFARCTION Status: Chronic (6) Sacral decubitus ulcer Code(s): L89.159 - PRESSURE ULCER OF SACRAL REGION, UNSPECIFIED STAGE Status: Chronic Qualifiers: Pressure injury stage: stage 2 Qualified Code(s): L89.152 - Pressure ulcer of sacral region, stage 2 (7) CKD (chronic kidney disease) stage 3, GFR 30-59 ml/min Status: Chronic (8) DM type 2 (diabetes mellitus, type 2) Status: Chronic (9) HLD (hyperlipidemia) Code(s): E78.5 - HYPERLIPIDEMIA, UNSPECIFIED Status: Chronic (10) HTN (hypertension) Code(s): I10 - ESSENTIAL (PRIMARY) HYPERTENSION Status: Chronic (11) PVD (peripheral vascular disease) Code(s): I73.9 - PERIPHERAL VASCULAR DISEASE, UNSPECIFIED Status: Chronic (12) S/P AKA (above knee amputation) bilateral Code(s): Z89.611 - ACQUIRED ABSENCE OF RIGHT LEG ABOVE KNEE; Z89.612 - ACQUIRED ABSENCE OF LEFT LEG ABOVE KNEE Status: Chronic - Plan Plan: E coli bacteremia - 1 of 2 blood cultures positive for E. coli - culture sensitive to rocephin. Rocephin 06/21. Yang recommended discharge with 5-7 days PO antibiotics - no systemic symptoms or lab findings concerning for sepsis, VSS - CT abd pelv showed no obvious alternative source of infection - Ucx no growth @ 24 hrs. Repeat Bcx NGTD. Chronic Gluteal Decubitus Ulcer - [place] concerned for infected ulcer. s/p 30mL/kg NS bolus, vanc, and zosyn in ER - Wound Care/PT/OT consulted for evaluation and treatment recs - Procal is negative - Wound culture has grown GBS Lactic Acid Elevation Lactic acid 3.8, no signs of infection, consider alternative source. s/p 30mL/ kg bolus. Hyperglycemia - On 140U levemir BID and 30U lispro with meals, will start lantus 70U->80->85 BID - Aggressive SSI - BG 149-263 in past 24 hrs CAD - Continue plavix and metoprolol DM2 - Plan as above HLD - Continue statin HTN - Continue home metoprolol, amlodipine PVD s/p R BKA and L AKA - PT/OT consult Dispo: stable for discharge pending placement Addendum - Attending - Attending Attestation Date/Time: 06/25/18 1018 I personally evaluated the patient and discussed the management with Dr. Barron. I agree with the History, Examination, Assessment and Plan documented above with any addition or exceptions noted below. Stable for d/c back to the NH on 7 day po abx.
[2018-06-25] MEDS: Baclofen 10 MG TAB PO SCH ×3 (08:43→20:44)
[2018-06-25] MEDS: Citalopram 20 MG TAB PO SCH (08:43)
[2018-06-25] MEDS: Magnesium Oxide 400 MG TAB PO SCH (08:44)
[2018-06-25] MEDS: Amlodipine 5 MG TAB PO SCH (08:44)
[2018-06-25] MEDS: Folic Acid 1 MG TAB PO SCH (08:44)
[2018-06-25] MEDS: Metoprolol Tartrate 25 MG TAB PO SCH ×2 (08:44→20:44)
[2018-06-25] MEDS: Clopidogrel Bisulfate 75 MG TAB PO SCH (08:44)
[2018-06-25] MEDS: Enoxaparin Sodium 40 MG/0.4 ML SYRINGE SC SCH (08:45)
[2018-06-25] MEDS: Insulin Glargine 85 UNITS in Pre-Filled Syringe 1 EACH SC SCH ×2 (08:45→20:44)
[2018-06-25] MEDS: Lovastatin 20 MG TAB PO SCH (17:56)
[2018-06-25] MEDS: cefTRIAXone\\ROCEPHIN 2 GM in Sodium Chloride 0.9% 100 ML IVPB SCH (20:45)
[2018-06-26] MEDS: HumaLOG 300 UNITS/3 ML VIAL SC PRN (05:43)
--- NOTE | 2018-06-26 07:05 | PDOC.FM ---
- Subjective Subjective: Ms. Colindres has no complaints today, awaiting breakfast. Denies pain. Awaiting placement. - Objective MAR Reviewed: Yes Vital Signs & Weight: Vital Signs (12 hours) Temp Pulse Resp BP Pulse Ox 06/25/18 19:42 98.2 F 82 18 115/73 92 L 06/25/18 19:38 92 L Weight Admit Weight 88.451 kg Weight 88.451 kg I&O: 06/25/18 06/26/18 06/27/18 06:59 06:59 06:59 Intake Total 720 1930 Output Total 1375 2400 Balance -085 -891 Result Diagrams: 06/23/18 09:08 06/23/18 09:08 Phys Exam - Physical Examination Constitutional: NAD Respiratory: no wheezing, clear to auscultation bilateral Cardiovascular: RRR, no significant murmur Gastrointestinal: soft, non-tender Psychiatric: normal affect Skin: normal turgor Dx/Plan (1) E coli bacteremia Code(s): R78.81 - BACTEREMIA Status: Acute (2) Hyperglycemia Code(s): R73.9 - HYPERGLYCEMIA, UNSPECIFIED Status: Acute (3) Lactic acidosis Code(s): E87.2 - ACIDOSIS Status: Acute (4) GERD (gastroesophageal reflux disease) Code(s): K21.9 - GASTRO-ESOPHAGEAL REFLUX DISEASE WITHOUT ESOPHAGITIS Status: Chronic (5) History of CVA with residual deficit Code(s): I69.30 - UNSPECIFIED SEQUELAE OF CEREBRAL INFARCTION Status: Chronic (6) Sacral decubitus ulcer Code(s): L89.159 - PRESSURE ULCER OF SACRAL REGION, UNSPECIFIED STAGE Status: Chronic Qualifiers: Pressure injury stage: stage 2 Qualified Code(s): L89.152 - Pressure ulcer of sacral region, stage 2 (7) CKD (chronic kidney disease) stage 3, GFR 30-59 ml/min Status: Chronic (8) DM type 2 (diabetes mellitus, type 2) Status: Chronic (9) HLD (hyperlipidemia) Code(s): E78.5 - HYPERLIPIDEMIA, UNSPECIFIED Status: Chronic (10) HTN (hypertension) Code(s): I10 - ESSENTIAL (PRIMARY) HYPERTENSION Status: Chronic (11) PVD (peripheral vascular disease) Code(s): I73.9 - PERIPHERAL VASCULAR DISEASE, UNSPECIFIED Status: Chronic (12) S/P AKA (above knee amputation) bilateral Code(s): Z89.611 - ACQUIRED ABSENCE OF RIGHT LEG ABOVE KNEE; Z89.612 - ACQUIRED ABSENCE OF LEFT LEG ABOVE KNEE Status: Chronic - Plan Plan: E coli bacteremia - 1 of 2 blood cultures positive for E. coli - culture sensitive to rocephin. Rocephin 06/21. Yang recommended discharge with 5-7 days PO antibiotics - no systemic symptoms or lab findings concerning for sepsis, VSS - CT abd pelv showed no obvious alternative source of infection - Ucx enterococcus, sensitivities pending. Repeat Bcx NGTD. Chronic Gluteal Decubitus Ulcer - NH concerned for infected ulcer. s/p 30mL/kg NS bolus, vanc, and zosyn in ER - Wound Care/PT/OT consulted for evaluation and treatment recs - Procal is negative - Wound culture has grown GBS Lactic Acid Elevation Lactic acid 3.8, no signs of infection, consider alternative source. s/p 30mL/ kg bolus. Hyperglycemia - On 140U levemir BID and 30U lispro with meals, will start lantus 70U->80->85 BID - Aggressive SSI - BG 136-249 in past 24 hrs CAD - Continue plavix and metoprolol DM2 - Plan as above HLD - Continue statin HTN - Continue home metoprolol, amlodipine PVD s/p R BKA and L AKA - PT/OT consult Dispo: stable for discharge pending placement Addendum - Attending - Attending Attestation Date/Time: 06/26/18 4623 I personally evaluated the patient and discussed the management with Dr. Tejeda I agree with the History, Examination, Assessment and Plan documented above with any addition or exceptions noted below. Stable for d/c once placement obtained.
[2018-06-26] MEDS: Clopidogrel Bisulfate 75 MG TAB PO SCH (08:27)
[2018-06-26] MEDS: Magnesium Oxide 400 MG TAB PO SCH (08:27)
[2018-06-26] MEDS: Metoprolol Tartrate 25 MG TAB PO SCH ×2 (08:28→20:51)
[2018-06-26] MEDS: Citalopram 20 MG TAB PO SCH (08:28)
[2018-06-26] MEDS: Baclofen 10 MG TAB PO SCH ×3 (08:28→20:50)
[2018-06-26] MEDS: Folic Acid 1 MG TAB PO SCH (08:28)
[2018-06-26] MEDS: Insulin Glargine 85 UNITS in Pre-Filled Syringe 1 EACH SC SCH ×2 (08:28→21:02)
[2018-06-26] MEDS: Amlodipine 5 MG TAB PO SCH (08:28)
[2018-06-26] MEDS: Enoxaparin Sodium 40 MG/0.4 ML SYRINGE SC SCH (08:28)
[2018-06-26] MEDS: Lovastatin 20 MG TAB PO SCH (15:35)
[2018-06-26] MEDS: cefTRIAXone\\ROCEPHIN 2 GM in Sodium Chloride 0.9% 100 ML IVPB SCH (20:51)
[2018-06-26] MEDS: Acetaminophen 325 MG TAB PO PRN (20:56)
--- NOTE | 2018-06-27 07:03 | PDOC.FM ---
- Subjective Subjective: Zandra Colindres seen at bedside this morning. She is resting comfortably in bed eating breakfast. She has no complaints and there were no acute events overnight. PT has discharged patient and she is clear for d/c from a medical standpoint. She denies any new pain, fever, chills, chest pain, dypsnea, n/v. - Objective MAR Reviewed: Yes Vital Signs & Weight: Vital Signs (12 hours) Temp Pulse Resp BP Pulse Ox 06/26/18 20:00 98 F 81 18 115/70 93 L 06/26/18 19:41 93 L Weight Admit Weight 88.451 kg Weight 88.451 kg I&O: 06/26/18 06/27/18 06/28/18 06:59 06:59 06:59 Intake Total 1930 1290 Output Total 2400 2950 Balance -470 -1660 Result Diagrams: 06/23/18 09:08 06/23/18 09:08 Phys Exam - Physical Examination Constitutional: NAD HEENT: moist MMs, sclera anicteric Neck: no JVD, supple, full ROM Respiratory: no wheezing, no rales, no rhonchi, clear to auscultation bilateral Cardiovascular: RRR, no significant murmur Gastrointestinal: soft, non-tender Musculoskeletal: no edema, pulses present Neurological: non-focal, normal sensation, moves all 4 limbs Psychiatric: normal affect, A&O x 3 Deviation from normal: dressing clean, dry intact over sacral ulcer Dx/Plan (1) Sacral decubitus ulcer Code(s): L89.159 - PRESSURE ULCER OF SACRAL REGION, UNSPECIFIED STAGE Status: Chronic Qualifiers: Pressure injury stage: stage 2 Qualified Code(s): L89.152 - Pressure ulcer of sacral region, stage 2 (2) Lactic acidosis Code(s): E87.2 - ACIDOSIS Status: Acute (3) Metabolic acidosis Code(s): E87.2 - ACIDOSIS Status: Acute (4) EMMANUEL (acute kidney injury) Code(s): N17.9 - ACUTE KIDNEY FAILURE, UNSPECIFIED Status: Acute (5) Hyperglycemia Code(s): R73.9 - HYPERGLYCEMIA, UNSPECIFIED Status: Acute (6) GERD (gastroesophageal reflux disease) Code(s): K21.9 - GASTRO-ESOPHAGEAL REFLUX DISEASE WITHOUT ESOPHAGITIS Status: Chronic (7) History of CVA with residual deficit Code(s): I69.30 - UNSPECIFIED SEQUELAE OF CEREBRAL INFARCTION Status: Chronic (8) DM type 2 (diabetes mellitus, type 2) Status: Chronic (9) HLD (hyperlipidemia) Code(s): E78.5 - HYPERLIPIDEMIA, UNSPECIFIED Status: Chronic (10) HTN (hypertension) Code(s): I10 - ESSENTIAL (PRIMARY) HYPERTENSION Status: Chronic - Plan Plan: E coli bacteremia - 1 of 2 blood cultures positive for E. coli - culture sensitive to rocephin. Rocephin 06/21. Yang recommended discharge with 5-7 days PO antibiotics - no systemic symptoms or lab findings concerning for sepsis, VSS - CT abd pelv showed no obvious alternative source of infection - Ucx enterococcus, sensitivities pending. Repeat Bcx NGTD. Chronic Gluteal Decubitus Ulcer - NH concerned for infected ulcer. s/p 30mL/kg NS bolus, vanc, and zosyn in ER - Wound Care/PT/OT consulted for evaluation and treatment recs - Procal is negative - Wound culture has grown GBS Lactic Acid Elevation Lactic acid 3.8, no signs of infection, consider alternative source. s/p 30mL/ kg bolus. Hyperglycemia - On 140U levemir BID and 30U lispro with meals, will start lantus 70U->80->85 BID - Aggressive SSI - BG 136-249 in past 24 hrs CAD - Continue plavix and metoprolol DM2 - Plan as above HLD - Continue statin HTN - Continue home metoprolol, amlodipine PVD s/p R BKA and L AKA - PT/OT consult Dispo: stable for discharge pending placement Addendum - Attending - Attending Attestation Date/Time: 06/27/18 9495 I personally evaluated the patient and discussed the management with Dr. Roque I agree with the History, Examination, Assessment and Plan documented above with any addition or exceptions noted below. 58 yo female admitted for sacral wound infection complicated by bacteremia. HD #7 Doing well. No acute changes. No fevers. VS, Labs, Imaging reviewed. Agree with PE documented. 1. Bacteremia: E. coli. Sensitivities reviewed. Repeat cultures negative. Afebrile. Continue for 10 day treatment. Continue 2nd gen cephalosporin or penicillin. Ok to dc to home. 2. Sacral wound: Continue daily wound care. 3. EMMANUEL: Resolved. 4. Adjust all home meds for other co-morbidities. [facility]
[2018-06-27] MEDS: Amlodipine 5 MG TAB PO SCH (08:19)
[2018-06-27] MEDS: Baclofen 10 MG TAB PO SCH (08:20)
[2018-06-27] MEDS: Citalopram 20 MG TAB PO SCH (08:20)
[2018-06-27] MEDS: Clopidogrel Bisulfate 75 MG TAB PO SCH (08:20)
[2018-06-27] MEDS: Metoprolol Tartrate 25 MG TAB PO SCH (08:20)
[2018-06-27] MEDS: Folic Acid 1 MG TAB PO SCH (08:20)
[2018-06-27] MEDS: Enoxaparin Sodium 40 MG/0.4 ML SYRINGE SC SCH (08:20)
[2018-06-27] MEDS: Magnesium Oxide 400 MG TAB PO SCH (08:20)
[2018-06-27] MEDS: Insulin Glargine 85 UNITS in Pre-Filled Syringe 1 EACH SC SCH (08:21)
[2018-06-27] MEDS: HumaLOG 300 UNITS/3 ML VIAL SC PRN (12:12)
--- NOTE | 2018-06-27 12:40 | DIS ---
DATE OF ADMISSION: 06/23/2018 DATE OF DISCHARGE: 06/27/2018 RESIDENT: Milad Roque MD ADMITTING ATTENDING: Cleve Luna MD DISCHARGE ATTENDING: Dana Carmichael MD CONSULTS: 1. Case Management on 06/25/2017. 2. OT evaluation on 06/24/2018. 3. Wound Care on 06/21/2018. PROCEDURES: 1. CT abdomen and pelvis on 06/23/2018. 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 Thickening of the rectum. Left ischial decubitus ulcer. 2. Wound culture from 06/20/2018 with organisms, Streptococcus agalactiae group B. 3. Blood culture x2 from 06/20/2018: One of two cultures positive for Escherichia coli resistant to ampicillin, ciprofloxacin, levofloxacin and Bactrim, sensitive to meropenem, Zosyn, gentamicin, ceftriaxone, cefoxitin, ceftazidime, and cefepime. 4. Blood culture x2 on 06/23/2018, no growth for 48 hours. 5. Urine culture from 06/23/2018. Urine culture grew enterococcus faecalis, 10,000 to 25,000 colony-forming units per mL, pansensitive. PRIMARY DIAGNOSES: 1. Escherichia coli bacteremia, one of two culture sets. 2. Sacral decubitus ulcer. SECONDARY DIAGNOSES: 1. Acute kidney injury. 2. History of cerebrovascular accident with residual deficit. 3. Gastroesophageal reflux disease. 4. Hyperglycemia. 5. Type 2 diabetes mellitus. 6. Hypertension. 7. Hyperlipidemia. 8. Status post AKA, bilateral. 9. Chronic kidney disease, stage 3. DISCHARGE MEDICATIONS: Resume home medications includin. NovoLog FlexPen sliding scale subcu before meals and at bedtime. 2. Pantoprazole 40 mg p.o. daily. 3. Vitamin D3 of 10,000 units once daily. 4. Citalopram hydrobromide 20 mg p.o. daily. 5. Clopidogrel 75 mg p.o. daily. 6. Polyethylene glycol 17 g p.o. daily p.r.n. 7. Metoprolol tartrate 25 mg p.o. b.i.d. 8. Lovastatin 20 mg p.o. q.p.m. with meals. 9. Amlodipine 5 mg p.o. daily. 10. Humalog 30 units subcu t.i.d. with meals. 11. Levemir 140 units subcu b.i.d. 12. Folic acid 1 mg p.o. daily. 13. Baclofen 10 mg p.o. t.i.d. 14. Seroquel 50 mg p.o. b.i.d. 15. Multivitamin one tab p.o. daily. 16. Amino acid/protein hydrolysate 30 mL p.o. b.i.d. 17. Bimatoprost one drop each eye at bedtime. 18. New home medications include cefuroxime 250 mg p.o. b.i.d. for 9 days. HISTORY OF PRESENT ILLNESS/HOSPITAL COURSE: Zandra Colindres is a 58-year-old female, who presents from [facility], sent in because Wound Care nurses were concerned about patient's sacral decubitus ulcer. The patient reports she has had the ulcer for the past year. She denies any recent change from baseline in regard to her ulcer or general well-being and health. States that she has pain that comes and goes, but none at this time. She has been cared for by Wound Care nurse. She denies any fevers, chills, or prior history of debridement. She reports recently that she has had some polydipsia, worse than baseline. Of note, she has urostomy in place and has no problems from that. Upon admission, vitals were blood pressure 159/94, heart rate 90, temperature 99.2, respiratory rate 16, and O2 saturation 95% on room air. Physical exam was significant for bilateral AKAs, nontender, and left gluteal decubitus ulcer with no erythema, edema, or purulence. She has bilateral gluteal skin breakdown. Labs are significant for lactic acid of 3.8, glucose of 454, creatinine 1.21, GFR 56. The patient was admitted for chronic gluteal decubitus ulcer wound management. Spoke to primary care provider at [facility], who stated that the patient's blood sugars are chronically uncontrolled due to noncompliance with diet requiring high amounts of insulin. The patient showed no signs of sepsis with the exception of lactic acid of 3.8. Labs were all normal and did not indicate active infection. Initially antibiotics were not started. However, blood cultures drawn after 48 hours grew E coli, sensitive to ceftriaxone. Ceftriaxone was started and continued for the remainder of her admission, approximately 5 days. Repeat blood cultures were done after initial blood culture showed E coli. Repeat blood cultures were negative. The patient's wound culture grew pansensitive strep agalactiae group B. Dr. Stinson consulted about one of two cultures that is growing E coli and recommended CT abdomen and pelvis to rule out alternative sources of infection. Wound was evaluated multiple times throughout admission and there was no sign of tracking of the wound. It was superficial stage II pressure ulcer with healthy granulation tissue. The urine culture grew enterococcus faecalis, which was pansensitive. The patient's blood sugars showed slight improvement. We were able to keep blood sugars between 136 and 250 throughout the last several days of admission, which is an improvement from where she had been. The patient was cleared for discharge on 06/27/2018. She will be going back to [facility] care and continuing antibiotic course for a total of 2 weeks due to the one of two blood culture sets growing E coli. DISPOSITION: Stable. The patient should do well if she continues antibiotics. Has follow up with PCP and can achieve better blood glucose control. DISCHARGE INSTRUCTIONS: 1. Location: [facility]. 2. Diet: Heart healthy and diabetic diet. 3. Activity: As tolerated. 4. Followup: Follow up with primary care provider at senior care. Job ID: [id number]
[2018-06-27 13:33] VITALS: BP 129/77; TEMP 97.7
== END 2018-06-27 13:56 | DRG 593 ==
LOC: ERS 18:20 → ERHOLD 22:06 → T4-B 06-21 18:08 → OBSVTOIN 06-23 17:25
PROVIDERS: ADMIT Family Medicine; ATTEND Family Medicine
DX: L89.152 Pressure ulcer of sacral region, stage 2 (principal); G81.94 Hemiplegia, unspecified affecting left nondominant side; N17.9 Acute kidney failure, unspecified; E87.2 Acidosis; R78.81 Bacteremia; Z66 Do not resuscitate; K21.9 Gastro-esophageal reflux disease without esophagitis; E78.5 Hyperlipidemia, unspecified; E11.51 Type 2 diabetes mellitus with diabetic peripheral angiopathy without gangrene; E11.65 Type 2 diabetes mellitus with hyperglycemia; I25.10 Atherosclerotic heart disease of native coronary artery without angina pectoris; B96.20 Unspecified Escherichia coli [E. coli] as the cause of diseases classified elsewhere; E11.22 Type 2 diabetes mellitus with diabetic chronic kidney disease; B95.2 Enterococcus as the cause of diseases classified elsewhere; I12.9 Hypertensive chronic kidney disease with stage 1 through stage 4 chronic kidney disease, or unspecified chronic kidney disease; N18.3 Chronic kidney disease, stage 3 (moderate); Z89.512 Acquired absence of left leg below knee; Z79.4 Long term (current) use of insulin; Z79.899 Other long term (current) drug therapy; Z93.6 Other artificial openings of urinary tract status; Z91.11 Patient's noncompliance with dietary regimen
CPT/HCPCS: 36415; 36416; 74177; 80048; 80053; 81003; 81015; 83036; 83605; 84145; 85025; 87040; 87070; 87077; 87086; 87149; 87186; 87205; 96365; 96366; 96367; J0696; J1650; J1825; J2543; J3370; J3490; J7050; Q9966

== ENCOUNTER 2018-08-03 09:27 | Outpatient (CLI) | payer MEDICARE, MEDICAID ==
[~2018-08-03 09:27] MED LIST: Sodium Chloride 0.9% 15 ML NEB ONE
--- NOTE | 2018-08-03 11:06 | PRG ---
DATE OF SERVICE: 08/03/2018 HISTORY: Ms. Zandra Colindres is a very pleasant 58-year-old, who presents to the Wound Center for evaluation of a decubitus ulceration of the left inferior buttock. Ms. Colindres continues to reside at [facility]. The patient is accompanied by one of her sisters today. PHYSICAL EXAMINATION: VITAL SIGNS: Temperature 98.0, pulse 96, respirations 16, and blood pressure 152/82. Accu-Chek 277. BACK: An ulceration of the left inferior buttock is present, which measures approximately 4.0 x 2.0 cm. The dimensions of the wound at the time of the patient's visit on 07/06/2018, were approximately 4.2 x 2.0 cm. Granulation tissue is visible within the wound margins. Necrotic and nonviable tissue present within the wound margins was debrided with an excisional full-thickness debridement with the use of a curette. No purulent drainage is associated with the wound. No erythema of the skin surrounding the wound is present. No maceration of the skin of the periwound is noted. A tunnel at the 12 o'clock position is present, which is approximately 2 cm in length. ASSESSMENT AND PLAN: 1. Decubitus ulceration of left inferior buttock. Dressing changes of Hydrofera Blue and Mepilex Border will be continued 3 times per week after cleansing and irrigation at [facility]. Orders will also be transmitted to [facility] for offloading of the left inferior buttock wound in addition to placement of the patient on a low air loss mattress or air-fluidized bed. I will see Ms. Colindres again in 4 weeks. 2. Diabetes mellitus. The patient's Accu-Chek in clinic today is 277. The patient has been reminded that for optimal wound healing, her blood glucoses should remain below 150. 3. Hypertension. 4. Coronary artery disease. 5. Peripheral vascular disease. Job ID: [id number]
== END 2018-08-03 09:28 | disposition home or self-care (01) ==
LOC: WCC 09:27
PROVIDERS: ATTEND Family Medicine
DX: E11.622 Type 2 diabetes mellitus with other skin ulcer (principal); L89.329 Pressure ulcer of left buttock, unspecified stage; E11.51 Type 2 diabetes mellitus with diabetic peripheral angiopathy without gangrene; I10 Essential (primary) hypertension; I25.10 Atherosclerotic heart disease of native coronary artery without angina pectoris
CPT/HCPCS: A4218

== ENCOUNTER 2018-08-22 15:06 | Outpatient (CLI) | payer MEDICARE, MEDICAID ==
--- NOTE | 2018-08-22 12:10 | PRG ---
DATE OF SERVICE: 08/22/2018 HISTORY: Ms. Zandra Colindres is a very pleasant 58-year-old, who presents to the Wound Center for evaluation of a decubitus ulceration of the left inferior buttock. The patient continues to reside at [facility] (formerly [facility]3]. The patient has no complaints today. She denies any fever or chills. PHYSICAL EXAMINATION: VITAL SIGNS: Temperature 98.3, pulse 80, respirations 18, and blood pressure 158/90. BACK: An ulceration of the left inferior buttock is present, which measures approximately 3.0 x 2.5 cm. The dimensions of the wound at the time of the patient's visit on 08/03/2018 were approximately 4.0 x 2.0 cm. Granulation tissue is visible within the wound margins. Necrotic and nonviable tissue present within the wound margins was debrided with an excisional full-thickness debridement. No purulent drainage is associated with the wound. No erythema of the skin surrounding the wound is present. No maceration of the skin of the periwound is noted. ASSESSMENT AND PLAN: 1. Decubitus ulceration of left inferior buttock. Dressing changes of Hydrofera Blue and Mepilex border will be continued 3 times per week after cleansing and irrigation at [facility] ([facility]3]. Orders will again be transmitted to [facility] ([facility]3] for offloading of the left inferior buttock wound. Orders were previously transmitted to [facility] ([facility]3] for the placement of the patient on a low air loss mattress or air fluidized bed. I will see Ms. Colindres again in 4 weeks. The patient states that she is sitting only for short periods of time. 2. Diabetes mellitus. Accu-Cheks will be obtained at the time of the patient's clinic visits. The patient has been reminded that for optimal wound healing her blood glucoses should remain below 150. 3. Hypertension. 4. Coronary artery disease. 5. Peripheral vascular disease. Job ID: [id number]
[2018-08-22] MEDS ORDERED: Sodium Chloride 0.9% 15 ML NEB ONE (18:00)
== END 2018-08-22 15:07 | disposition home or self-care (01) ==
LOC: WCC 15:06
PROVIDERS: ATTEND Family Medicine
DX: E11.622 Type 2 diabetes mellitus with other skin ulcer (principal); L89.109 Pressure ulcer of unspecified part of back, unspecified stage; I10 Essential (primary) hypertension; I25.10 Atherosclerotic heart disease of native coronary artery without angina pectoris; E11.51 Type 2 diabetes mellitus with diabetic peripheral angiopathy without gangrene
CPT/HCPCS: 36415; 80053; 85025; A4218

== ENCOUNTER 2018-09-08 09:29 | Outpatient (CLI) | payer MEDICARE, MEDICAID ==
--- NOTE | 2018-09-08 10:13 | PRG ---
DATE OF SERVICE: 09/08/2018 HISTORY: Ms. Zandra Colindres is a very pleasant 58-year-old, who presents to the Wound Center for evaluation of a decubitus ulceration of the left inferior buttock. The patient continues to reside at [facility]. Ms. Colindres has no complaints today. She denies any fever or chills. PHYSICAL EXAMINATION: VITAL SIGNS: Pulse 78, respirations 17, blood pressure 136/72. Accu-Chek 291. BACK: An ulceration of the left inferior buttock is present, which measures approximately 3.5 x 2.2 cm. The dimensions of the wound at the time of the patient's visit on 08/22/2018 were approximately 3.0 x 2.5 cm. Granulation tissue is visible within the wound margins. Necrotic and nonviable tissue present within the wound margins was debrided with an excisional full-thickness debridement. No purulent drainage is associated with the wound. No erythema of the skin surrounding the wound is present. No maceration of the skin of the periwound is noted. ASSESSMENT AND PLAN: 1. Decubitus ulceration of left inferior buttock. Dressing changes of Hydrofera Blue and Mepilex Border will be continued 3 times per week after cleansing and irrigation at [facility]. Orders will again be transmitted to [facility] for offloading of the left inferior buttock wound. Orders were previously transmitted to [facility] for the placement of the patient on a low air loss mattress or air-fluidized bed. I will see Ms. Colindres again in 4 weeks. 2. Diabetes mellitus. The patient's Accu-Chek in clinic today is 291. The patient has been reminded that for optimal wound healing, her blood glucoses should remain below 150. 3. Hypertension. 4. Coronary artery disease. 5. Peripheral vascular disease. Job ID: [id number]
== END 2018-09-08 09:30 | disposition home or self-care (01) ==
LOC: WCC 09:29
PROVIDERS: ATTEND Family Medicine
DX: E11.622 Type 2 diabetes mellitus with other skin ulcer (principal); L89.329 Pressure ulcer of left buttock, unspecified stage; E11.51 Type 2 diabetes mellitus with diabetic peripheral angiopathy without gangrene; I10 Essential (primary) hypertension; I25.10 Atherosclerotic heart disease of native coronary artery without angina pectoris
CPT/HCPCS: 11042; 36416; A4218